=== PATIENT | male | born 1990 | race Hispanic/Latino ===

== ENCOUNTER 2023-11-20 08:36 | Inpatient (IN) | payer SELFPAY ==
[~2023-11-20] VITALS: Ht 160 cm; Wt 90.5 kg
[2023-11-20 08:54] LABS: HEMATOCRIT 46.4 % (42-54); MEAN CORPUSCULAR HEMOGLOBIN 31.4 pg (27.0-33.0); MEAN CORPUSCULAR HGB CONC 36.2 g/dL (32.0-36.0); MEAN CORPUSCULAR VOLUME 86.7 fL (79-99); PLATELET COUNT (AUTO) 293 K/uL (130-400); RED BLOOD CELL COUNT(AUTO) 5.35 MIL/uL (4.50-6.20); RED CELL DISTRIBUTION WIDTH 12.3 % (11.0-15.5); WHITE BLOOD COUNT (AUTO) 9.2 K/uL (4.8-10.8)
[2023-11-20 09:03] LABS: CREATININE 1.2 mg/dL (0.5-1.3); POTASSIUM 3.7 mmol/L (3.5-5.1)
[2023-11-20 09:08] LABS: ALBUMIN 4.3 g/dL (3.5-5.0); BILIRUBIN,TOTAL 0.9 mg/dL (0.2-1.0); TOTAL PROTEIN, SERUM 8.6 g/dL (6.0-8.3)
[2023-11-20] MEDS: PANTOPRAZOLE 40 MG/VIAL IVP ONE (09:11)
[2023-11-20] MEDS: 0.9%NACL 1000ML 1,000 ML IV SCH (09:11)
[2023-11-20] MEDS: ONDANSETRON 4MG INJ IVP ONE (09:11)
[2023-11-20 09:13] LABS: APPEARANCE,URINE CLEAR (CLEAR); BILIRUBIN,URINE NEGATIVE (NEGATIVE); COLOR,URINE YELLOW (YELLOW); GLUCOSE, URINE (UA) NEGATIVE (NEGATIVE); KETONES,URINE NEGATIVE (NEGATIVE); LEUKOCYTE ESTERASE ,URINE NEGATIVE Leu/uL (NEGATIVE); NITRATE,URINE NEGATIVE (NEGATIVE); OCCULT BLOOD,URINE NEGATIVE (NEGATIVE); PH,URINE 5.5 (5.0-8.0); PROTEIN,URINE 10 mg/dL (NEGATIVE); UROBILINOGEN,URINE 0.2 mg/dL (0.2-1.0)
[2023-11-20 10:18] LABS: ADD UA MICROSCOPIC NO
[2023-11-20 10:24] LABS: AMPHET/METH SCREEN,URINE NEGATIVE (NEGATIVE); BARBITURATE SCREEN, URINE NEGATIVE (NEGATIVE); BENZODIAZEPINES SCREEN,URINE NEGATIVE (NEGATIVE); CANNABINOID SCREEN,URINE NEGATIVE (NEGATIVE); COCAINE SCREEN,URINE NEGATIVE (NEGATIVE); OPIATE SCREEN,URINE NEGATIVE (NEGATIVE); PHENCYCLIDINE SCREEN,URINE NEGATIVE (NEGATIVE)
[2023-11-20 10:27] LABS: BACTERIA,URINE Rare /HPF (None Seen); RBC,URINE 0-1 /HPF (0-1); WBC,URINE 0-1 /HPF (0-1)
[2023-11-20] MEDS: metoPROLOL tartRATE 1 MG/ML 5ML VIAL IV ONE (10:36)
[2023-11-20] MEDS: metoPROLOL tartRATE 50 MG TAB PO ONE (10:48)
[2023-11-20] MEDS: metoPROLOL tartRATE 25 MG TAB PO ONE (10:58)
[2023-11-20] MEDS ORDERED: acetaMINOPHEN 325 MG TAB PO PRN (13:30)
[2023-11-20] MEDS ORDERED: ONDANSETRON 4MG INJ IVP PRN (13:30)
[2023-11-20 19:35] VITALS: BP 123/77; PULSE 71; RESP 18; TEMP 98.4
[2023-11-20] MEDS: FAMOTIDINE 20MG TAB PO SCH (19:50)
[2023-11-20 20:00] VITALS: O2SAT 97
[2023-11-20] MEDS ORDERED: CALC500T13 PO (22:44)
[2023-11-21] VITALS (21 sets, daily range): BP systolic 104–127; BP diastolic 48–87; PULSE 61–92; RESP 12–20; TEMP 97.7–98.8; O2SAT 95–97
[2023-11-21 05:24] LABS: THYROID STIMULATING HORMONE 2.94 uIU/mL (0.36-3.74)
[2023-11-21] MEDS: metoPROLOL tartRATE 25 MG TAB PO SCH (09:00)
[2023-11-21] MEDS ORDERED: LIDOCAINE PF 100MG/5ML (2%) SYRINGE 5ML ONE (10:23)
[2023-11-21] MEDS ORDERED: proPOFol 10 MG/ML 20ML VIAL IV ONE (10:23)
[2023-11-22 00:30] VITALS: BP 114/64; PULSE 67; RESP 20; TEMP 98.3
[2023-11-22 04:45] VITALS: BP 112/68; PULSE 56; RESP 20; TEMP 98.8
[2023-11-22 07:00] VITALS: BP 119/78; PULSE 64; RESP 18; TEMP 97.5
[2023-11-22 07:30] VITALS: O2SAT 95
[2023-11-22] MEDS ORDERED: METO25TA6 PO (08:49)
== END 2023-11-22 09:50 | disposition home or self-care (01) | DRG 379 ==
LOC: EDH 08:36 → EDHIP 08:37 → OBSVTOIN 08:37 → 2DH 18:26
PROVIDERS: ADMIT Hospitalist; ATTEND Hospitalist
PROC: 0DB58ZX Excision of Esophagus, Via Natural or Artificial Opening Endoscopic, Diagnostic (ICD-10-PCS; principal; 2023-11-21)
PROC: 0DB68ZX Excision of Stomach, Via Natural or Artificial Opening Endoscopic, Diagnostic (ICD-10-PCS; 2023-11-21)
DX: K25.4 Chronic or unspecified gastric ulcer with hemorrhage (principal); I48.0 Paroxysmal atrial fibrillation; E66.9 Obesity, unspecified; F17.200 Nicotine dependence, unspecified, uncomplicated; I08.1 Rheumatic disorders of both mitral and tricuspid valves; K31.89 Other diseases of stomach and duodenum; K21.9 Gastro-esophageal reflux disease without esophagitis; Z79.899 Other long term (current) drug therapy; Z90.49 Acquired absence of other specified parts of digestive tract; Z68.35 Body mass index [BMI] 35.0-35.9, adult
CPT/HCPCS: 36415; 43239; 74176; 76700; 80053; 80061; 80305; 81003; 83690; 83735; 84443; 84484; 85027; 93005; 93306; 93356; 96374; 96375; G0378; J2001; J2405; J2470; J2704; J3490; J7030; A4215; A4620